=== PATIENT | female | born 1990 | race African-American/Black ===

== ENCOUNTER 2018-08-04 10:04 | Emergency (ER) | payer OTHER ==
--- NOTE | 2018-08-04 11:20 | ER Document Report ---
ED Medical Screen (RME) - General Chief Complaint: Shortness Of Breath Stated Complaint: DIFFICULTY BREATHING Time Seen by Provider: 08/04/18 11:15 Notes: 28-year-old female patient reports when she woke up this morning she had sudden onset of chest tightness with shortness of breath. There is no cough associated with this. She did start hydrochlorthiazide yesterday for hypertension, that is the only medication she takes. She does seem a little anxious, and may be hyperventilating. I have greeted and performed a rapid initial assessment of this patient. A comprehensive ED assessment and evaluation of the patient, analysis of test r esults and completion of the medical decision making process will be conducted by additional ED providers. TRAVEL OUTSIDE OF THE [place] IN LAST 30 DAYS: No - Related Data Allergies/Adverse Reactions: No Known Allergies Allergy (Unverified 08/04/18 10:06) Physical Exam - Vital signs Vitals: Temp Pulse Resp BP Pulse Ox 98.4 F 78 20 159/117 H 100 08/04/18 10:16 08/04/18 10:16 08/04/18 10:16 08/04/18 10:16 08/04/18 10:16 Course - Vital Signs Vital signs: Temp Pulse Resp BP Pulse Ox 98.4 F 78 20 159/117 H 100 08/04/18 10:16 08/04/18 10:16 08/04/18 10:16 08/04/18 10:16 08/04/18 10:16
[2018-08-04 11:55] LABS: ABSOLUTE EOSINOPHILS # (AUTO) 0.2 10^3/uL (0.0-0.6); ABSOLUTE LYMPHOCYTES (AUTO) 1.1 10^3/uL (0.5-4.7); ABSOLUTE MONOCYTES (AUTO) 0.5 10^3/uL (0.1-1.4); ABSOLUTE NEUT (AUTO) 7.1 10^3/uL (1.7-8.2); BASOPHILS % (AUTO) 0.3 % (0-2); EOSINOPHILS % (AUTO) 1.7 % (0-6); HEMATOCRIT 43.4 % (36.0-47.0); HEMOGLOBIN 14.8 g/dL (12.0-15.5); LYMPHOCYTES % (AUTO) 12.7 % (13-45); MEAN CORPUSCULAR HEMOGLOBIN 29.5 pg (27.0-33.4); MEAN CORPUSCULAR HGB CONC 34.1 g/dL (32.0-36.0); MEAN CORPUSCULAR VOLUME 86 fl (80-97); MONOCYTES % (AUTO) 5.5 % (3-13); PLATELET COUNT 321 10^3/uL (150-450); RED BLOOD COUNT 5.03 10^6/uL (3.72-5.28); RED CELL DISTRIBUTION WIDTH 13.7 % (11.5-14.0); SEGMENTED NEUTROPHILS % (AUTO) 79.8 % (42-78); TOTAL CELLS COUNTED % (AUTO) 100 %; WHITE BLOOD COUNT 8.9 10^3/uL (4.0-10.5)
[2018-08-04 12:06] LABS: ALANINE AMINOTRANSFERASE 31 U/L (9-52); ALBUMIN 4.5 g/dL (3.5-5.0); ALKALINE PHOSPHATASE 128 U/L (38-126); ANION GAP 6 (5-19); ASPARTATE AMINO TRANSFERASE 20 U/L (14-36); BILIRUBIN,DIRECT 0.1 mg/dL (0.0-0.4); BILIRUBIN,TOTAL 0.4 mg/dL (0.2-1.3); BLOOD UREA NITROGEN 11 mg/dL (7-20); CALCIUM 9.4 mg/dL (8.4-10.2); CARBON DIOXIDE 30 mmol/L (22-30); CHLORIDE 103 mmol/L (98-107); CREATINE KINASE 97 U/L (30-135); GLUCOSE 99 mg/dL (75-110); POTASSIUM 4.3 mmol/L (3.6-5.0); SODIUM 139.2 mmol/L (137-145); TOTAL PROTEIN 7.5 g/dL (6.3-8.2)
[2018-08-04 12:18] LABS: CREATINE KINASE MB 0.62 ng/mL (<4.55)
[2018-08-04 12:22] LABS: TROPONIN I 0.079 ng/mL
--- NOTE | 2018-08-04 13:01 | RADIOLOGY REPORT (SQ) ---
EXAM DESCRIPTION: CHEST 2 VIEWS COMPLETED DATE/TIME: 08/04/2018 12:13 pm REASON FOR STUDY: SOB COMPARISON: None. EXAM PARAMETERS: NUMBER OF VIEWS: two views TECHNIQUE: Digital Frontal and Lateral radiographic views of the chest acquired. RADIATION DOSE: NA LIMITATIONS: none FINDINGS: LUNGS AND PLEURA: No opacities, masses or pneumothorax. No pleural effusion. MEDIASTINUM AND HILAR STRUCTURES: No masses or contour abnormalities. HEART AND VASCULAR STRUCTURES: Heart normal size. No evidence for failure. BONES: No acute findings. HARDWARE: None in the chest. OTHER: No other significant finding. IMPRESSION: NO ACUTE RADIOGRAPHIC FINDING IN THE CHEST. TECHNICAL DOCUMENTATION: JOB ID: [id number] [employer]- All Rights Reserved Reading location - IP/workstation name: [email or web address]
[2018-08-04] MEDS ORDERED: ASPIRIN 81 MG TABLET, CHEWABLE PO ONE (14:09)
[2018-08-04] MEDS ORDERED: ACETAMINOPHEN 325 MG TABLET PO ONE (14:25)
--- NOTE | 2018-08-04 14:31 | ER Document Report ---
ED Cardiac - General Chief Complaint: Shortness Of Breath Stated Complaint: DIFFICULTY BREATHING Time Seen by Provider: 08/04/18 11:15 Primary Care Provider: JADA AUGUSTIN FNP [Primary Care Provider] - Follow up as needed Information source: Patient Notes: Patient is a 28-year-old female that presents today with the onset this morning of some "tightness" in her chest with some mild shortness of breath. She states it is to the substernal region. She denies any radiation. She denies any nausea, vomiting, or fevers. She has had 2 days of runny nose, congestion, and coughing. Patient has a history of multiple sclerosis as well as high blood pressure. Patient states that "belching" relieves the pain. She denies any pain to the abdomen. Patient states she has intermittent similar pain to this in the past. She has not seen a director of revenue cycle management. She has recently driven to [place] and back. TRAVEL OUTSIDE OF THE [place] IN LAST 30 DAYS: No - HPI Patient complains to provider of: Other - See above Chest pain location: Other - See above Quality of pain: Other - See above Chest pain radiation location: None Severity now: Mild Severity at worst: Moderate Pain level currently: Denies Chest pain precipitating factors: At Rest Associated symptoms: Other - See above Exacerbated by: Denies Relieved by: Nothing Similar symptoms previously: No Recently seen / treated by doctor: No - Related Data Allergies/Adverse Reactions: No Known Allergies Allergy (Unverified 08/04/18 10:06) Past Medical History - Social History Smoking Status: Never Smoker Chew tobacco use (# tins/day): No Frequency of alcohol use: None Drug Abuse: None Family History: Reviewed & Not Pertinent Patient has suicidal ideation: No Patient has homicidal ideation: No - Past Medical History Cardiac Medical History: Reports: Hx Hypertension Renal/ Medical History: Denies: Hx Peritoneal Dialysis Review of Systems - Review of Systems Constitutional: denies: Fever EENT: denies: Eye discharge, Nose discharge Respiratory: Cough, Short of breath Gastrointestinal: denies: Vomiting Genitourinary: denies: Dysuria Musculoskeletal: denies: Leg swelling Skin: Other - no hives. denies: Rash Neurological/Psychological: Other - no slurred speech -: Yes All other systems reviewed and negative Physical Exam - Vital signs Vitals: Temp Pulse Resp BP Pulse Ox 98.4 F 78 20 159/117 H 100 08/04/18 10:16 08/04/18 10:16 08/04/18 10:16 08/04/18 10:16 08/04/18 10:16 Interpretation: Normal Notes: Reviewed vital signs and nursing note as charted by RN. CONSTITUTIONAL: Alert and oriented and responds appropriately to questions. Well-appearing; well-nourished HEAD: Normocephalic; atraumatic EYES: PERRL; Conjunctivae clear, sclerae non-icteric ENT: Bilateral nonpurulent nasal rhinorrhea. No facial swelling, erythema, bog giness; no posterior pharyngeal erythema or induration CARD: Regular rate and rhythm; no murmurs; symmetric distal pulses RESP: Normal chest excursion without splinting or tachypnea; no tenderness to palpation of the chest; breath sounds clear and equal bilaterally; no wheezes, no rhonchi, no rales ABD/GI: Normal bowel sounds; non-distended; soft, non-tender BACK: The back appears normal and is non-tender to palpation EXT: Normal ROM in all joints; non-tender to palpation; no edema SKIN: No acute lesions noted NEURO: CN 2-12 intact; 5/5 bilateral upper and lower extremity strength with sensation intact to light touch PSYCH: The patient's mood and manner are appropriate. Grooming and personal hygiene are appropriate. Course - Re-evaluation Re-evalutation: Given the above history and physical with recent travel, we will obtain basic labs including a d-dimer, EKG, and a troponin. Patient is currently chest pain-free. No family history of early cardiac disease or strokes. EKG shows a heart of 72, normal sinus rhythm, normal axis, no obvious ST elevation or depression, flattening T waves inferiorly and laterally 08/04/18 14:32 Vital signs are stable. Patient is still pain-free. Normal d-dimer. X-ray of the chest as recorded. First troponin is indeterminate. I will order repeat troponin. Patient has been afebrile. Patient has had runny nose, congestion, and coughing. EKG shows no signs of pericarditis. Amplitude is not shortened indicating pericardial effusion. I do not auscultate any friction rub at this time. 08/04/18 16:01 Repeat troponin has gone up substantially. Repeat EKG has been ordered. I will start the patient on heparin with a heparin drip and call for transfer. 08/04/18 16:12 Hog Feeder is at bedside. He agrees with transfer for possibly cardiac catheterization. Patient has had some runny nose, congestion, without fevers over the last 24 hours. I suppose there is a possibility of myocarditis. Patient is currently chest pain-free. Patient did have a recent trip, but is not tachycardic or hypoxic with a negative d-dimer. I do believe pulmonary embolism to be unlikely. Patient will be started on heparin nevertheless and transferred for further cardiac evaluation. 08/04/18 16:21 Repeat EKG shows a heart rate of 84, normal sinus rhythm, slightly inverted T waves V3 through V5. No other real appreciable change. Cardiology team has called me back and has accepted the transfer. - Vital Signs Vital signs: Temp Pulse Resp BP Pulse Ox 98.4 F 78 18 153/106 H 100 08/04/18 10:16 08/04/18 10:16 08/04/18 13:00 08/04/18 13:00 08/04/18 13:00 - Laboratory Result Diagrams: 08/04/18 11:25 08/04/18 11:25 Laboratory results interpreted by me: 08/04/18 08/04/18 11:25 11:25 Seg Neutrophils % 79.8 H Lymphocytes % 12.7 L Alkaline Phosphatase 128 H Critical Care Note - Critical Care Note Total time excluding time spent on procedures (mins): 35 Discharge - Discharge Clinical Impression: NSTEMI (non-ST elevated myocardial infarction) Condition: Fair Referrals: JADA AUGUSTIN FNP [Primary Care Provider] - Follow up as needed
[2018-08-04] MEDS ORDERED: HEPARIN SOD (PORCINE) 1,000 UNIT/ML 10 ML VIAL IV ONE (16:03)
[2018-08-04] MEDS ORDERED: HEPARIN SODIUM,PORCINE/D5W 25,000 UNIT/250 ML RTUINJ IV PRN (16:03)
[2018-08-04] MEDS ORDERED: METOPROLOL TARTRATE 25 MG TABLET PO ONE (16:20)
[2018-08-04 16:21] LABS: INTERNATIONAL RATION (INR) 0.89; PROTHROMBIN TIME 12.5 SEC (11.4-15.4)
[2018-08-04 17:08] LABS: URINE AMPHETAMINES SCREEN NEGATIVE; URINE BARBITURATES SCREEN NEGATIVE; URINE BENZODIAZEPINES SCREEN NEGATIVE; URINE COCAINE SCREEN NEGATIVE; URINE MARIJUANA (THC) SCREEN NEGATIVE; URINE METHADONE SCREEN NEGATIVE; URINE PHENCYCLIDINE SCREEN NEGATIVE
[2018-08-04] MEDS ORDERED: HEPARIN SOD (PORCINE) 1,000 UNIT/ML 10 ML VIAL IV PRN (19:04)
[2018-08-04 20:03] VITALS: BP 148/92
--- NOTE | 2018-08-04 21:38 | EKG REPORT ---
SEVERITY:- BORDERLINE ECG - SINUS RHYTHM BORDERLINE T ABNORMALITIES, ANT-LAT LEADS : Confirmed by: Letha Mccoy MD 04-Aug-2018 21:37:29
--- NOTE | 2018-08-04 21:38 | EKG REPORT ---
SEVERITY:- BORDERLINE ECG - SINUS RHYTHM BORDERLINE T ABNORMALITIES, ANT-LAT LEADS : Confirmed by: Letha Mccoy MD 04-Aug-2018 21:37:26
== END 2018-08-04 20:28 | disposition short-term general hospital (02) ==
LOC: ER 10:04
DX: I21.4 Non-ST elevation (NSTEMI) myocardial infarction (principal); R06.02 Shortness of breath; R05 Cough; I10 Essential (primary) hypertension; G35 Multiple sclerosis; J34.89 Other specified disorders of nose and nasal sinuses
CPT/HCPCS: 93005; 36415; 82553; 82550; 84703; 85025; 85610; 80053; 84484; 80307; 85379; 83970; 71046; 93010; J1644 ×2; 96365; 96366; 96376; 99291